=== PATIENT | male | born 2000 | race Caucasian/White ===

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

== ENCOUNTER 2024-09-26 20:24 | Inpatient (IN) ==
--- NOTE | 2024-09-26 20:50 | Emergency Department Note ---
Impression & Plan Fall down stairs, Rhabdomyolysis, Transaminitis, Pain in right leg ED Provider Note HISTORY OF PRESENT ILLNESS: Patient is a 23-year-old male presenting with right leg pain after fall downstairs. Patient reports that he was walking down stairs backwards when he suddenly lost his footing and fell, falling down 10 stairs and landing on his right side. Reports that he landed mainly on his right side and is complaining of right mid thigh pain. He reports his right shoulder slightly hurts, but states his pain is mainly in his right thigh. He reports he was able to get up after the fall and bear weight for about an hour, but then the pain became too excruciating, prompting him to present to the ER. He denies striking his head or loss of consciousness. He is not on any anticoagulation or antiplatelet therapies. He denies any chest pain, shortness of breath or lightheadedness prior to his fall. He reports he just lost his footing. Denies any alcohol or drug use. ROS: as above PHYSICAL EXAM: Vitals: See nursing chart. Constitutional: GCS 15. HENT: Head: No external signs of trauma. Mouth/Throat: Midface stable. No malocclusion. Eyes: EOMI. Pupils are 3 mm, round and reactive bilaterally. Nose: No nasal septal hematoma. No gross deformity. Neck: C-collar in place. No midline C-spine tenderness. No step-offs. Cardiovascular: RRR. Pulses present in all 4 extremities. No chest wall tenderness to palpation. Pulmonary/Chest: BS equal bilaterally. No tenderness or ecchymosis. Abdomen: No tenderness or ecchymosis. Musculoskeletal: Pelvis: No instability. Extremities: No gross deformity. Patient has tenderness palpation to the mid thigh on the right leg. He is able to dorsiflex and plantarflex the ankle and wiggle toes. Sensation intact to light touch about the nerve distributions. No open wounds. Skin: No laceration. No abrasion. Neuro: No focal neurological deficits. GCS as above. Psych: Normal mood and affect. MDM: - Vitals signs showed tachycardia - History obtained via patient. History as above. - Chronic conditions affecting care: None - Differential diagnoses include, but are not limited to: Intracranial hemorrhage; hypoglycemia; skull fracture; liver laceration; spleen laceration; pneumothorax - Order placed for continuous cardiac monitoring. At this time, monitor showed rate of 88 bpm with normal sinus rhythm, per my interpretation. - External medical records reviewed. - EKG image interpreted by myself showed normal sinus rhythm. Rate 81 bpm. QT 338. No acute ischemic changes. Patient is noted to have some slight ST elevations in leads II, 3, aVF and lateral leads V3 through V6. However, this likely secondary to early repolarization. - Laboratory workup interpreted by myself showed normal WBC; normal hemoglobin; normal PT/INR; stable electrolytes; hyperglycemia (glucose 63); transaminitis (AST 164; ALT 54); elevated CK (Cr 15,528); normal lipase; normal troponin; negative alcohol - CXR image reviewed by myself is negative for pneumonia or pneumothorax, per my interpretation. - Xray pelvis negative for fracture - Xray right femur negative for fracture - CT head wo contrast negative for acute intracranial pathology - CT cervical spine wo contrast negative for acute pathology - CT chest with IV contrast negative for acute traumatic injury. - CT abdomen/pelvis with IV contrast negative for acute traumatic injury. Noted to have a large amount of stool in the colon. - Patient given 1g IV tylenol for pain control. On reassessment, he still complaining of significant pain and spasming in the right quad. No appreciable ecchymosis or open wounds at this time. The compartment is soft. Patient has intact distal pulses. He is able to dorsiflex and plantarflex the ankle and initiate flexion at the knee. He was given 50 mg IV Toradol and 2L normal saline. - The patient's cervical collar was removed today. The patient's imaging was reviewed and the CT C-Spine was negative for acute injury. The patient was alert and oriented prior to his exam. On exam, he was non-tender to palpation midline and had full ROM without any neurologic deficits. The patient tolerated this procedure well. - Discussed results with the patient. I did ask if he has been taking pre- workout and he denies this. He denies being on the ground for very long and states that he had fallen down the stairs and then got up and was ambulating, but when his adrenaline wore off he could not bear weight on the right leg. He does states that he just started going to the gym this week. - Discussion was had with keycase assembler about patient's case and need for admission - Hospitalist consulted for admission - Patient admitted to [facility] for further evaluation and management. ASSESSMENT AND PLAN: Diagnosis: Fall downstairs; rhabdomyolysis; transaminitis; pain in right leg Plan: Admit Past Med/Surg History Problem List (Updated 09/26/24 @ 23:27 by Veronica Burton MD) Pain in right leg (Acute) Transaminitis (Acute) Rhabdomyolysis (Acute) Fall down stairs (Acute) COVID-19 (Acute) Injury of left leg (Acute) History of laparoscopic appendectomy (08/29/21) Laparoscopic Appendectomy - Rambo Hebert DO, FACS 08/29/2021 Acute appendicitis (Acute) No significant past surgical history No chronic diseases present Social History Smoking Status: Current every day smoker Tobacco Type: E-cigarettes / Vaping Second Hand Exposure: No; Do You Dip or Chew Tobacco: No; Hx Alcohol Use: No Hx Substance Use: No Preferred Language: Singaporean Communication Ability: Effective Visual Impairment: No Limitations Vibrating Screen Operator Required: No Beliefs That Will Affect Care: None Current Living Situation Comment: [place] Feels Safe at Home: Yes Assistive Devices: None Allergies Allergies Allergy/AdvReac Type Severity Reaction Status Date / Time No Known Allergies Allergy Verified 05/22/23 23:30 Results & Data (ED) Vital Signs Vital Signs - 24 hr 09/26/24 20:29 09/26/24 20:39 09/26/24 20:39 Temperature 36.6 C 36.5 C 36.5 C Temperature Source Temporal Artery Scan Oral Pulse Rate 93 H 90 Pulse Rate [Apical] 90 Pulse Strength [Bilateral] Normal Respiratory Rate 16 20 20 Respiratory Effort / Characteristics Non-Labored Spontaneous Respiratory Depth Normal Respiratory Pattern Regular Blood Pressure 130/75 133/81 Blood Pressure [Right Arm] 133/81 Blood Pressure Mean 93 Blood Pressure Mean [Right Arm] 98 Blood Pressure Position [Right Arm] Lying Pulse Oximetry 99 99 99 Oxygen Delivery Method Nasal Cannula Room Air Room Air Oxygen Flow Rate 0 Sepsis Recent Fever Within 48 Hours No Sepsis New/Unexplained Change in Mental Status No Sepsis Action Taken by Nursing No Action Required 09/26/24 20:39 09/26/24 21:15 09/26/24 21:19 Temperature Temperature Source Pulse Rate 96 H 87 Pulse Rate [Apical] Pulse Strength [Bilateral] Respiratory Rate 20 Respiratory Effort / Characteristics Respiratory Depth Respiratory Pattern Blood Pressure Blood Pressure [Right Arm] Blood Pressure Mean Blood Pressure Mean [Right Arm] Blood Pressure Position [Right Arm] Pulse Oximetry 99 99 Oxygen Delivery Method Room Air Room Air Oxygen Flow Rate Sepsis Recent Fever Within 48 Hours Sepsis New/Unexplained Change in Mental Status Sepsis Action Taken by Nursing 09/26/24 21:19 09/26/24 21:50 09/26/24 22:00 Temperature Temperature Source Pulse Rate Pulse Rate [Apical] 95 H 88 Pulse Strength [Bilateral] Respiratory Rate 20 20 20 Respiratory Effort / Characteristics Non-Labored Spontaneous Non-Labored Spontaneous Non-Labored Spontaneous Respiratory Depth Normal Normal Normal Respiratory Pattern Regular Regular Regular Blood Pressure Blood Pressure [Right Arm] 120/76 133/70 126/88 Blood Pressure Mean Blood Pressure Mean [Right Arm] 90 91 100 Blood Pressure Position [Right Arm] Lying Lying Lying Pulse Oximetry 98 98 98 Oxygen Delivery Method Room Air Room Air Room Air Oxygen Flow Rate Sepsis Recent Fever Within 48 Hours Sepsis New/Unexplained Change in Mental Status Sepsis Action Taken by Nursing 09/26/24 22:57 Temperature Temperature Source Pulse Rate Pulse Rate [Apical] 93 H Pulse Strength [Bilateral] Respiratory Rate 19 Respiratory Effort / Characteristics Non-Labored Spontaneous Respiratory Depth Respiratory Pattern Blood Pressure Blood Pressure [Right Arm] 117/95 Blood Pressure Mean Blood Pressure Mean [Right Arm] 102 Blood Pressure Position [Right Arm] Pulse Oximetry 99 Oxygen Delivery Method Room Air Oxygen Flow Rate Sepsis Recent Fever Within 48 Hours Sepsis New/Unexplained Change in Mental Status Sepsis Action Taken by Nursing Laboratory Data 09/26/24 20:42 09/26/24 20:42 Lab Results 09/26/24 09/26/24 09/26/24 Range/Units 20:42 20:47 21:24 WBC 6.19 (4.8-10.8) K/ul RBC 5.46 (4.70-6.10) M/uL Hgb 16.1 (14.0-18.0) g/dl POC Hgb 16.7 (14.0-18.0) g/dl Hct 46.9 (42.0-52.0) % POC Hct 49 (42-52) % MCV 85.9 (80.0-100.0) fL MCH 29.5 (25.0-34.0) pg MCHC 34.3 (32.0-36.0) g/dL RDW Std Deviation 41.4 (36.4-46.3) fL RDW Coeff of Luci 13.4 (11.5-14.5) % Plt Count 320 (130-400) K/uL MPV 9.2 L (9.4-12.4) fL Immature Gran % (Auto) 0.2 % Neut % (Auto) 65.9 % Lymph % (Auto) 22.1 % Kidder % (Auto) 7.6 % Eos % (Auto) 3.4 % Baso % (Auto) 0.8 % Neut # (Auto) 4.08 (1.40-6.50) K/uL Lymph # (Auto) 1.37 (1.20-3.40) K/uL Kidder # (Auto) 0.47 (0.11-0.59) K/uL Eos # (Auto) 0.21 (0.00-0.50) K/uL Baso # (Auto) 0.05 (0.00-0.20) K/uL Immature Gran # (Auto) 0.01 (0.01-0.20) K/uL PT 10.6 (9.0-12.0) Seconds INR 1.0 (0.9-1.1) APTT 26 (21-31) Seconds PTT Ratio 1.0 POC Sodium 141 (135-144) mmol/L Sodium 139 (136-145) mmol/L POC Potassium 3.6 (3.3-5.0) mmol/L Potassium 3.5 (3.5-5.1) mmol/L POC Chloride 104 (101-112) mmol/L Chloride 105 (98-107) mmol/L Carbon Dioxide 29 (21-32) mmol/L POC Total CO2 25 (24-31) mmol/L Anion Gap 5 (3-11) POC Anion Gap 16.0 (16-25) mmol/L POC BUN 9 (7-18) mg/dl BUN 11 (6-23) mg/dl Creatinine 0.99 (0.6-1.4) mg/dl POC Creatinine 1.0 (0.6-1.3) mg/dl Est Cr Clr Drug Dosing 98.0 ml/min eGFR 111.15 BUN/Creatinine Ratio 11.1 (10-20) Glucose 63 L (70-99(Fasting)) mg/dl POC Glucose (70-99) mg/dl POC Glucose (other) 63 L* (70-99) mg/dl Calcium 10.2 (8.6-10.3) mg/dl POC Ioniz Calcium Domingo 1.20 (1.12-1.32) mmol/l Total Bilirubin 0.9 (0.2-1.0) mg/dl AST 164 H (13-39) U/L ALT 54 H (7-52) U/L Alkaline Phosphatase 60 (34-104) U/L Total Creatine Kinase 22776 H (30-223) U/L Troponin I High Sens 8.0 (0-20) pg/ml Total Protein 8.4 H (6.0-8.3) gm/dl Albumin 5.1 H (3.4-5.0) gm/dl Globulin 3.3 (2.5-4.0) gm/dl Albumin/Globulin Ratio 1.5 (0.9-2) Lipase 27 (11-82) U/L Ethyl Alcohol mg/dL < 10.0 (<10.0) mg/dl 09/26/24 Range/Units 22:56 WBC (4.8-10.8) K/ul RBC (4.70-6.10) M/uL Hgb (14.0-18.0) g/dl POC Hgb (14.0-18.0) g/dl Hct (42.0-52.0) % POC Hct (42-52) % MCV (80.0-100.0) fL MCH (25.0-34.0) pg MCHC (32.0-36.0) g/dL RDW Std Deviation (36.4-46.3) fL RDW Coeff of Luci (11.5-14.5) % Plt Count (130-400) K/uL MPV (9.4-12.4) fL Immature Gran % (Auto) % Neut % (Auto) % Lymph % (Auto) % Kidder % (Auto) % Eos % (Auto) % Baso % (Auto) % Neut # (Auto) (1.40-6.50) K/uL Lymph # (Auto) (1.20-3.40) K/uL Kidder # (Auto) (0.11-0.59) K/uL Eos # (Auto) (0.00-0.50) K/uL Baso # (Auto) (0.00-0.20) K/uL Immature Gran # (Auto) (0.01-0.20) K/uL PT (9.0-12.0) Seconds INR (0.9-1.1) APTT (21-31) Seconds PTT Ratio POC Sodium (135-144) mmol/L Sodium (136-145) mmol/L POC Potassium (3.3-5.0) mmol/L Potassium (3.5-5.1) mmol/L POC Chloride (101-112) mmol/L Chloride (98-107) mmol/L Carbon Dioxide (21-32) mmol/L POC Total CO2 (24-31) mmol/L Anion Gap (3-11) POC Anion Gap (16-25) mmol/L POC BUN (7-18) mg/dl BUN (6-23) mg/dl Creatinine (0.6-1.4) mg/dl POC Creatinine (0.6-1.3) mg/dl Est Cr Clr Drug Dosing ml/min eGFR BUN/Creatinine Ratio (10-20) Glucose (70-99(Fasting)) mg/dl POC Glucose 102 H (70-99) mg/dl POC Glucose (other) (70-99) mg/dl Calcium (8.6-10.3) mg/dl POC Ioniz Calcium Domingo (1.12-1.32) mmol/l Total Bilirubin (0.2-1.0) mg/dl AST (13-39) U/L ALT (7-52) U/L Alkaline Phosphatase (34-104) U/L Total Creatine Kinase (30-223) U/L Troponin I High Sens (0-20) pg/ml Total Protein (6.0-8.3) gm/dl Albumin (3.4-5.0) gm/dl Globulin (2.5-4.0) gm/dl Albumin/Globulin Ratio (0.9-2) Lipase (11-82) U/L Ethyl Alcohol mg/dL (<10.0) mg/dl Administered Medications Discontinued Medications Acetaminophen (Ofirmev) 1,000 mg in 100 mls @ 400 mls/hr IV NOW STA Stop: 09/26/24 21:04 Last Infusion: 09/26/24 22:26 Dose: Infused Documented By: Admin: 09/26/24 21:12 Dose: 400 mls/hr Documented By: Sodium Chloride (Nss) 1,000 mls @ 999 mls/hr IV .Q1H1M ONE Stop: 09/26/24 23:45 Last Admin: 09/26/24 22:54 Dose: 999 mls/hr Documented By: Ioversol (Optiray 320 100ml) 90 ml IV ONCE ONE Stop: 09/26/24 20:57 Last Admin: 09/26/24 20:57 Dose: 90 ml Documented By: RONNI Ketorolac Tromethamine (Ketorolac Tromethamine 15 Mg/Ml Vial) 15 mg IV NOW STA Stop: 09/26/24 22:46 Last Admin: 09/26/24 22:53 Dose: 15 mg Documented By: Imaging Data Radiologist's Impression: Chest X-Ray 09/26/24 20:45 Exam(s): XR CXR 1 VIEW EXAM: XR Chest, 1 View CLINICAL HISTORY: Reason for exam: Trauma. TECHNIQUE: Frontal view of the chest. COMPARISON: None FINDINGS: Hardware: None. Lungs/pleura: Normal. No focal consolidation. No pleural effusion or pneumothorax. Heart/mediastinum: Normal. No cardiomegaly. Soft tissues: Unremarkable. Bones: No acute fracture. Upper abdomen: Normal. IMPRESSION: No acute disease identified. Electronically signed by: Sandy Medina M.D. 09/26/24 22:40 PM Femur X-Ray 09/26/24 20:45 Exam(s): XR RIGHT FEMUR, 2 views EXAM: XR Right Femur, 2 Views CLINICAL HISTORY: Reason for exam: R mid-thigh pain s/p fall down stairs. TECHNIQUE: Frontal and lateral views of the right femur. COMPARISON: None FINDINGS: Bones/joints: No displaced fracture or dislocation identified. Joint space is maintained. No bony lesion. Soft tissues: Normal. No radiopaque foreign body identified. IMPRESSION: No displaced fracture or dislocation identified. Electronically signed by: Sandy Medina M.D. 09/26/24 22:41 PM Pelvis X-Ray 09/26/24 20:45 Exam(s): XR PELVIS, 1-2 views EXAM: XR Pelvis, 1 or 2 Views CLINICAL HISTORY: Reason for exam: Trauma. TECHNIQUE: Frontal view of the pelvis. COMPARISON: None FINDINGS: Bones/joints: No displaced fracture or dislocation identified. Joint space is maintained. No bony lesion. Soft tissues: Normal. No radiopaque foreign body identified. IMPRESSION: No displaced fracture or dislocation identified. Electronically signed by: Sandy Medina M.D. 09/26/24 22:40 PM Abdomen/Pelvis CT 09/26/24 20:46 Exam(s): CT ABDOMEN + PELVIS With Contrast IV Amt: 90 ml optiray 320 EXAM: CT Abdomen and Pelvis With Intravenous Contrast CLINICAL HISTORY: Reason for exam: Trauma. TECHNIQUE: Axial computed tomography images of the abdomen and pelvis with intravenous contrast. CTDI is 14.81 mGy and DLP is 685.66 mGy-cm. Automated exposure control was utilized for the study. A dose lowering technique was utilized adhering to the principles of ALARA. CONTRAST: Patient received 90 ml optiray 320 of IV contrast COMPARISON: CT abdomen/pelvis on 10/15/2021. FINDINGS: Lung bases: Unremarkable. No mass. No consolidation. ABDOMEN: Liver: Unremarkable. No mass. Gallbladder and bile ducts: Unremarkable. No calcified stones. No ductal dilation. Pancreas: Unremarkable. No mass. No ductal dilation. Spleen: Unremarkable. No splenomegaly. Adrenals: Unremarkable. No mass. Kidneys and ureters: Unremarkable. No hydronephrosis or obstructing ureteral stone. Stomach and bowel: Large amount of stool in the colon. No small bowel obstruction. No mucosal thickening. PELVIS: Appendix: Appendectomy. Bladder: Unremarkable. No mass. Reproductive: Unremarkable as visualized. ABDOMEN and PELVIS: Intraperitoneal space: Unremarkable. No free air. No significant fluid collection. Bones/joints: No acute fracture. No dislocation. Soft tissues: Unremarkable. Vasculature: Unremarkable. No abdominal aortic aneurysm. Lymph nodes: Unremarkable. No enlarged lymph nodes. IMPRESSION: Large amount of stool in the colon. No small bowel obstruction. No acute traumatic abnormality identified. Electronically signed by: Sandy Medina M.D. 09/26/24 21:[address] 09/26/24 20:46 Exam(s): CT C SPINE EXAM: CT Cervical Spine Without Intravenous Contrast CLINICAL HISTORY: Reason for exam: Trauma. TECHNIQUE: Axial computed tomography images of the cervical spine without intravenous contrast. CTDI is 20.92 mGy and DLP is 457.85 mGy-cm. Automated exposure control was utilized for the study. A dose lowering technique was utilized adhering to the principles of ALARA. COMPARISON: None FINDINGS: Bones: Normal alignment. No acute fracture or bony lesion. Disc spaces: No subluxation. No spinal canal stenosis or neuroforaminal stenosis. Soft tissues: Normal. Other: Mild mucosal thickening and polyp versus mucous retention cyst in the right maxillary sinus. Moderate to severe mucosal thickening and small amount of fluid within the left maxillary sinus. Mild scarring at the lung apices. IMPRESSION: No acute traumatic abnormality. Electronically signed by: Sandy Medina M.D. 09/26/24 22:[address] 09/26/24 20:46 Exam(s): CT CHEST With Contrast EXAM: CT Chest With Intravenous Contrast CLINICAL HISTORY: Reason for exam: Trauma. TECHNIQUE: Axial computed tomography images of the chest with intravenous contrast. CTDI is 15.21 mGy and DLP is 529.31 mGy-cm. Automated exposure control was utilized for the study. A dose lowering technique was utilized adhering to the principles of ALARA. CONTRAST: Contrast must be dictated COMPARISON: CT chest on 01/26/2024 FINDINGS: Lungs: Unremarkable. No mass. No consolidation. Pleural space: Unremarkable. No pneumothorax. No significant effusion. Heart: Unremarkable. No cardiomegaly. No significant pericardial effusion. No significant coronary artery calcifications. Bones/joints: Old fracture deformity of the distal left clavicle. No dislocation. Soft tissues: Unremarkable. Vasculature: Unremarkable. No thoracic aortic aneurysm. Lymph nodes: Unremarkable. No enlarged lymph nodes. IMPRESSION: No acute findings in the chest. Electronically signed by: Sandy Medina M.D. 09/26/24 21:[address] 09/26/24 20:46 Exam(s): CT HEAD Without Contrast EXAM: CT Head Without Intravenous Contrast CLINICAL HISTORY: Reason for exam: trauma. TECHNIQUE: Axial computed tomography images of the head/brain without intravenous contrast. CTDI is 37.22 mGy and DLP is 624.41 mGy-cm. Automated exposure control was utilized for the study. A dose lowering technique was utilized adhering to the principles of ALARA. COMPARISON: None FINDINGS: Brain: No acute infarct or hemorrhage. No extra-axial fluid collection. No mass effect or midline shift. Ventricles and sulci: Normal. No ventriculomegaly or intraventricular hemorrhage. Bones: Normal. No bony lesion or acute fracture. Subcutaneous tissues: Normal. Sinuses: Mucosal thickening or fluid partially seen in the left maxillary sinus. Mastoid air cells: Normal. Orbits: Grossly unremarkable. IMPRESSION: No acute intracranial abnormality. Electronically signed by: Sandy Medina M.D. 09/26/24 21:33 PM Discharge Plan Visit Data Chief Complaint: Trauma Stated Complaint: RIGHT THIGH INJURY ED Provider: Veronica Burton Discharge Problem: Fall down stairs, Rhabdomyolysis, Transaminitis, Pain in right leg Forms Stand Alone Forms: [facility] Referrals [facility]errals: [facility] [Primary Care Provider] -
[2024-09-26] MEDS: OPTIRAY 320 100ml IV ONE (20:57)
[2024-09-26 20:59] LABS: iSTAT Hemoglobin 16.7 g/dl (14.0-18.0); iSTAT Ionized Calcium 1.2 mmol/l (1.12-1.32); iSTAT Potassium 3.6 mmol/L (3.3-5.0)
[2024-09-26] MEDS: ACETAMINOPHEN 1,000 MG/100 ML VIAL IV STA (21:12)
--- NOTE | 2024-09-26 21:33 | CT Scan Report ---
Exam(s): CT HEAD Without Contrast EXAM: CT Head Without Intravenous Contrast CLINICAL HISTORY: Reason for exam: trauma. TECHNIQUE: Axial computed tomography images of the head/brain without intravenous contrast. CTDI is 37.22 mGy and DLP is 624.41 mGy-cm. Automated exposure control was utilized for the study. A dose lowering technique was utilized adhering to the principles of ALARA. COMPARISON: None FINDINGS: Brain: No acute infarct or hemorrhage. No extra-axial fluid collection. No mass effect or midline shift. Ventricles and sulci: Normal. No ventriculomegaly or intraventricular hemorrhage. Bones: Normal. No bony lesion or acute fracture. Subcutaneous tissues: Normal. Sinuses: Mucosal thickening or fluid partially seen in the left maxillary sinus. Mastoid air cells: Normal. Orbits: Grossly unremarkable. IMPRESSION: No acute intracranial abnormality. Electronically signed by: Sandy Medina M.D. 09/26/24 21:33 PM
--- NOTE | 2024-09-26 21:41 | CT Scan Report ---
Exam(s): CT CHEST With Contrast EXAM: CT Chest With Intravenous Contrast CLINICAL HISTORY: Reason for exam: Trauma. TECHNIQUE: Axial computed tomography images of the chest with intravenous contrast. CTDI is 15.21 mGy and DLP is 529.31 mGy-cm. Automated exposure control was utilized for the study. A dose lowering technique was utilized adhering to the principles of ALARA. CONTRAST: Contrast must be dictated COMPARISON: CT chest on 01/26/2024 FINDINGS: Lungs: Unremarkable. No mass. No consolidation. Pleural space: Unremarkable. No pneumothorax. No significant effusion. Heart: Unremarkable. No cardiomegaly. No significant pericardial effusion. No significant coronary artery calcifications. Bones/joints: Old fracture deformity of the distal left clavicle. No dislocation. Soft tissues: Unremarkable. Vasculature: Unremarkable. No thoracic aortic aneurysm. Lymph nodes: Unremarkable. No enlarged lymph nodes. IMPRESSION: No acute findings in the chest. Electronically signed by: Sandy Medina M.D. 09/26/24 21:40 PM
[2024-09-26 21:42] LABS: Basophils # (auto) 0.05 K/uL (0.00-0.20); Basophils % (auto) 0.8 %; Eosinophils # (auto) 0.21 K/uL (0.00-0.50); Eosinophils % (auto) 3.4 %; Hematocrit (blood only) 46.9 % (42.0-52.0); Hemoglobin 16.1 g/dl (14.0-18.0); Immature Granulocytes # (auto) 0.01 K/uL (0.01-0.20); Immature Granulocytes % (auto) 0.2 %; Lymphocytes # (auto) 1.37 K/uL (1.20-3.40); Lymphocytes % (auto) 22.1 %; Mean Corpuscular Hemoglobin 29.5 pg (25.0-34.0); Mean Corpuscular Hgb Conc 34.3 g/dL (32.0-36.0); Mean Corpuscular Volume 85.9 fL (80.0-100.0); Mean Platelet Volume 9.2 fL (9.4-12.4); Monocytes # (auto) 0.47 K/uL (0.11-0.59); Monocytes % (auto) 7.6 %; Neutrophils # (auto) 4.08 K/uL (1.40-6.50); Neutrophils % (auto) 65.9 %; Platelet Count 320 K/uL (130-400); RDW Coefficient of Variation 13.4 % (11.5-14.5); RDW Standard Deviation 41.4 fL (36.4-46.3); Red Blood Count 5.46 M/uL (4.70-6.10); White Blood Count 6.19 K/ul (4.8-10.8)
[2024-09-26 21:50] LABS: BUN Creatinine Ratio 11.1 (10-20); Calcium 10.2 mg/dl (8.6-10.3); Potassium 3.5 mmol/L (3.5-5.1)
--- NOTE | 2024-09-26 21:54 | CT Scan Report ---
Exam(s): CT ABDOMEN + PELVIS With Contrast IV Amt: 90 ml optiray 320 EXAM: CT Abdomen and Pelvis With Intravenous Contrast CLINICAL HISTORY: Reason for exam: Trauma. TECHNIQUE: Axial computed tomography images of the abdomen and pelvis with intravenous contrast. CTDI is 14.81 mGy and DLP is 685.66 mGy-cm. Automated exposure control was utilized for the study. A dose lowering technique was utilized adhering to the principles of ALARA. CONTRAST: Patient received 90 ml optiray 320 of IV contrast COMPARISON: CT abdomen/pelvis on 10/15/2021. FINDINGS: Lung bases: Unremarkable. No mass. No consolidation. ABDOMEN: Liver: Unremarkable. No mass. Gallbladder and bile ducts: Unremarkable. No calcified stones. No ductal dilation. Pancreas: Unremarkable. No mass. No ductal dilation. Spleen: Unremarkable. No splenomegaly. Adrenals: Unremarkable. No mass. Kidneys and ureters: Unremarkable. No hydronephrosis or obstructing ureteral stone. Stomach and bowel: Large amount of stool in the colon. No small bowel obstruction. No mucosal thickening. PELVIS: Appendix: Appendectomy. Bladder: Unremarkable. No mass. Reproductive: Unremarkable as visualized. ABDOMEN and PELVIS: Intraperitoneal space: Unremarkable. No free air. No significant fluid collection. Bones/joints: No acute fracture. No dislocation. Soft tissues: Unremarkable. Vasculature: Unremarkable. No abdominal aortic aneurysm. Lymph nodes: Unremarkable. No enlarged lymph nodes. IMPRESSION: Large amount of stool in the colon. No small bowel obstruction. No acute traumatic abnormality identified. Electronically signed by: Sandy Medina M.D. 09/26/24 21:54 PM
[2024-09-26 22:03] LABS: Partial Thromboplastin Time 26 Seconds (21-31); Prothrombin Time 10.6 Seconds (9.0-12.0)
[2024-09-26 22:09] LABS: Albumin Globulin Ratio 1.5 (0.9-2); Albumin Level 5.1 gm/dl (3.4-5.0); Bilirubin,Total 0.9 mg/dl (0.2-1.0); Globulin 3.3 gm/dl (2.5-4.0); Total Protein 8.4 gm/dl (6.0-8.3)
--- NOTE | 2024-09-26 22:12 | CT Scan Report ---
Exam(s): CT C SPINE EXAM: CT Cervical Spine Without Intravenous Contrast CLINICAL HISTORY: Reason for exam: Trauma. TECHNIQUE: Axial computed tomography images of the cervical spine without intravenous contrast. CTDI is 20.92 mGy and DLP is 457.85 mGy-cm. Automated exposure control was utilized for the study. A dose lowering technique was utilized adhering to the principles of ALARA. COMPARISON: None FINDINGS: Bones: Normal alignment. No acute fracture or bony lesion. Disc spaces: No subluxation. No spinal canal stenosis or neuroforaminal stenosis. Soft tissues: Normal. Other: Mild mucosal thickening and polyp versus mucous retention cyst in the right maxillary sinus. Moderate to severe mucosal thickening and small amount of fluid within the left maxillary sinus. Mild scarring at the lung apices. IMPRESSION: No acute traumatic abnormality. Electronically signed by: Sandy Medina M.D. 09/26/24 22:10 PM
--- NOTE | 2024-09-26 22:41 | XRay Report ---
Exam(s): XR CXR 1 VIEW EXAM: XR Chest, 1 View CLINICAL HISTORY: Reason for exam: Trauma. TECHNIQUE: Frontal view of the chest. COMPARISON: None FINDINGS: Hardware: None. Lungs/pleura: Normal. No focal consolidation. No pleural effusion or pneumothorax. Heart/mediastinum: Normal. No cardiomegaly. Soft tissues: Unremarkable. Bones: No acute fracture. Upper abdomen: Normal. IMPRESSION: No acute disease identified. Electronically signed by: Sandy Medina M.D. 09/26/24 22:40 PM
--- NOTE | 2024-09-26 22:41 | XRay Report ---
Exam(s): XR PELVIS, 1-2 views EXAM: XR Pelvis, 1 or 2 Views CLINICAL HISTORY: Reason for exam: Trauma. TECHNIQUE: Frontal view of the pelvis. COMPARISON: None FINDINGS: Bones/joints: No displaced fracture or dislocation identified. Joint space is maintained. No bony lesion. Soft tissues: Normal. No radiopaque foreign body identified. IMPRESSION: No displaced fracture or dislocation identified. Electronically signed by: Sandy Medina M.D. 09/26/24 22:40 PM
--- NOTE | 2024-09-26 22:42 | XRay Report ---
Exam(s): XR RIGHT FEMUR, 2 views EXAM: XR Right Femur, 2 Views CLINICAL HISTORY: Reason for exam: R mid-thigh pain s/p fall down stairs. TECHNIQUE: Frontal and lateral views of the right femur. COMPARISON: None FINDINGS: Bones/joints: No displaced fracture or dislocation identified. Joint space is maintained. No bony lesion. Soft tissues: Normal. No radiopaque foreign body identified. IMPRESSION: No displaced fracture or dislocation identified. Electronically signed by: Sandy Medina M.D. 09/26/24 22:41 PM
[2024-09-26] MEDS: KETOROLAC TROMETHAMINE 15 MG/ML VIAL IV STA (22:53)
[2024-09-26] MEDS: SODIUM CHLORIDE 0.9% 1,000 ML IV ONE (22:54)
[2024-09-27] MEDS: SODIUM CHLORIDE 0.9% 1,000 ML IV ONE (00:14)
--- NOTE | 2024-09-27 00:25 | History & Physical Report ---
Date of Service September 27, 2024 Assessment & Plan (1) Rhabdomyolysis: (2) Transaminitis: Plan Pt is a 23 yo male with no significant past medical history who presents to the hospital on 09/27 for fall down 10 stairs without injury on imaging but rhabdomyolysis noted. #Rhabdomyolysis - post fall and just started to go to the gym this week during Ramadan - CT/xrays scans on admission negative for fractures - CK level on admission 15,000 - given 1L NS bolus x2 in the ED - continue on NS @ 200/hr for 2 bags to start - am CK level ordered #Transaminitis - on admission, mild - am CMP #Hypoglycemia - pt is currently fasting for - he was asymptomatic with episode - corrected with po intake VTE prophylaxis: low risk History of Present Illness Chief Complaint: Fall Primary Care Provider: [facility] Pt is a 23 yo male with no significant past medical history who presents to the hospital on 09/27 for fall down 10 stairs without injury on imaging but rhabdomyolysis noted. Pt states he was walking down a flight of stairs backwards and then slipped and fell down the remaining 10 stairs, landing on his R side and coming in today with R leg/thigh pain. No symptoms of chest pain, SOB, or lightheadedness prior to the fall. He did not hit his head, no LOC. He is participating in adan and states that he just started working out for the first time this week on Sunday with his last gym session being yesterday. He states he has been taking protein powder "Mass Gain" also starting this week. Right now, he states he has no pain. His R leg pain is much improved. No chest pain or SOB right now. Allergies Allergy/AdvReac Type Severity Reaction Status Date / Time No Known Allergies Allergy Verified 05/22/23 23:30 Home Medications Medication Instructions Recorded Confirmed Type No Known Home Medications 09/27/24 09/27/24 History Past Med/Surg History Problem List (Updated 09/26/24 @ 23:27 by Veronica Burton MD) Pain in right leg (Acute) Transaminitis (Acute) Rhabdomyolysis (Acute) Fall down stairs (Acute) COVID-19 (Acute) Injury of left leg (Acute) History of laparoscopic appendectomy (08/29/21) Laparoscopic Appendectomy - Rambo Hebert DO, FACS 08/29/2021 Acute appendicitis (Acute) No significant past surgical history No chronic diseases present Social History Smoking Status: Current every day smoker Tobacco Type: Cigarettes Second Hand Exposure: No; Do You Dip or Chew Tobacco: No; Hx Alcohol Use: No Hx Substance Use: No Preferred Language: Yi Communication Ability: Effective Visual Impairment: No Limitations Manufacturing Lab Technician Required: No Beliefs That Will Affect Care: None Current Living Situation: Other Current Living Situation Comment: [facility] Other Information That Helps Us Care for You: No Feels Safe at Home: Yes Safety Concerns: Feels Safe At This Time Assistive Devices: None Review of Systems Review of Systems: Per HPI. Physical Exam Physical Exam: General: Alert and oriented, no acute distress, HEENT: Normocephalic, moist oral mucosa, Cardio: Regular rate and rhythm, no murmur, Resp: Lungs clear to auscultation b/l, no wheezes or rhonchi, GI: Soft and nontender Skin: Warm, pink, dry, Extremities: Normal range of motion, 5/5 strength, dorsalis pedis and posterior tibialis pulses good bilaterally Results & Data Results & Data Vital Signs (Past 12 Hours) Vital Signs Temp Pulse Pulse Resp BP BP Pulse Ox 09/26/24 22:57 93 H 19 117/95 99 09/26/24 22:00 88 20 126/88 98 09/26/24 21:50 20 133/70 98 09/26/24 21:19 95 H 20 120/76 98 09/26/24 21:19 87 20 99 09/26/24 21:15 99 09/26/24 20:39 96 H 09/26/24 20:39 36.5 C 90 20 133/81 99 09/26/24 20:39 36.5 C 90 20 133/81 99 09/26/24 20:29 36.6 C 93 H 16 130/75 99 O2 Del Method O2 Flow Rate 09/26/24 22:57 Room Air 09/26/24 22:00 Room Air 09/26/24 21:50 Room Air 09/26/24 21:19 Room Air 09/26/24 21:19 Room Air 09/26/24 21:15 Room Air 09/26/24 20:39 09/26/24 20:39 Room Air 09/26/24 20:39 Room Air 0 09/26/24 20:29 Nasal Cannula Supervising Physician Co-Signing Physician Notes Attending addendum: I have physically seen this patient, have supervised the medical residents activities, and agree with the H&P unless as otherwise noted. Assessment and Plan: The patient is a 53-year-old male with no significant past medical history who presents to the emergency department after a fall downstairs, as he was walking up stairs. Patient status post mechanical fall, as he was walking up steps, unsure if he stepped up, but fell backwards. Imaging studies including CT scan of the head, chest, cervical spine, abdomen pelvis revealed no acute findings. #Acute rhabdomyolysis- AST 164, ALT 54, total CK 15,528, creatinine 0.99 Repeat laboratories in a.m. after aggressive rehydration. Patient's status post 2 L normal saline bolus in the ED Continue with NSS at 200 mL/h x 2 additional liters Patient did receive Toradol 15 mg IV in ED, will hold on additional NSAIDs or nephrotoxins Acetaminophen 1 g IV every 8 hours as needed for fever Patient of note on discussion, had also been on a significant exercise program over the past week, and was advised to avoid this type of activity again, until given the okay by physicians Resident Activity Tracking Resident Involvement: Resident Care Provided Care Provided: Adult [facility]
[2024-09-27 01:18] LABS: Appearance Urine Clear (Clear); Bilirubin Urine Negative (Negative); Blood Urine Negative (Negative); Color Urine Yellow; Glucose Urine UA Negative (Negative); Ketones Urine Negative (Negative); Leukocyte Esterase Urine Negative (Negative); Nitrite Urine Negative (Negative); Protein Urine Negative (Negative); Specific Gravity Urine 1.019 (1.000-1.030); Urobilinogen Urine Negative (Negative); pH Urine 7.5 (4.5-7.5)
[2024-09-27] MEDS ORDERED: ONDANSETRON INJ 2 MG/ML 2 ML VIAL IV PRN (01:28)
[2024-09-27] MEDS ORDERED: ACETAMINOPHEN 325 MG TAB PO PRN (01:28)
[2024-09-27] MEDS ORDERED: POLYETHYLENE (MIRALAX) 17 GM PACK PO PRN (01:28)
[2024-09-27 01:51] LABS: Amphetamines+Metham, Urine Neg (Neg); Barbiturates, Urine Neg (Neg); Benzodiazepine, Urine Neg (Neg); Cocaine, Urine Neg (Neg); Fentanyl, Urine Neg (Neg); MDMA (Ecstacy), Urine Neg (Neg); Marijuana, Urine Neg (Neg); Methadone, Urine Neg (Neg); Opiate, Urine Neg (Neg); Phencyclidine, Urine Neg (Neg)
[2024-09-27] MEDS: SODIUM CHLORIDE 0.9% 1,000 ML IV SCH (02:15)
[2024-09-27 05:16] LABS: Albumin Globulin Ratio 1.5 (0.9-2); Albumin Level 3.8 gm/dl (3.4-5.0); BUN Creatinine Ratio 10.5 (10-20); Bilirubin,Total 0.3 mg/dl (0.2-1.0); Calcium 8.3 mg/dl (8.6-10.3); Creatinine Clr Calc Pharmacy 127.7 ml/min; Globulin 2.6 gm/dl (2.5-4.0); Potassium 3.7 mmol/L (3.5-5.1); Total Protein 6.4 gm/dl (6.0-8.3)
--- NOTE | 2024-09-27 07:39 | Hospitalist Progress Note ---
Date of Service September 27, 2024 Assessment & Plan (1) Rhabdomyolysis: (2) Transaminitis: Plan Pt is a 23 yo male with no significant past medical history who presents to the hospital on 09/27 for fall down 10 stairs without injury on imaging but rhabdomyolysis noted. Has received 2L IVF, but continues with elevating CK noted on AM labs. #Rhabdomyolysis - post fall and just started to go to the gym this week during adan - CT/xrays scans on admission negative for fractures - [place] [address] this 09/27 - given 2 bolus IVF in ED - Continue NSS and increased rate to 250/hr for an additional 2 bags - CK level and BMP ordered for 1400 #Transaminitis - on admission, mild - Continues with elevated AST at 165, ALT is WNL - Continue to monitor with CMP #Hypoglycemia - pt is had been fasting for - BSG normal per CMP 09/27 VTE prophylaxis: low risk Code status: Full Diet: Regular Dispo PCU/tele Admission and Anticipated Discharge Date Admission Date: September 27, 2024 Subjective Pt is a 23 yo male without significant PMH who presented after a fall down stairs. Imaging was negative for fracture, but labs found significantly high CK and liver enzymes. Pt admitted to working out while fasting for . Pt was started on IVF. This morning, pt denies increased or new muscle or joint pain. He states his urine is of normal pale yellow color and without dysuria. Denies CP, SOB, abdominal pain, nausea, vomiting, diarrhea, rashes, dizziness, numbness or tingling Review of Systems Review of Systems: Per HPI. Physical Exam Physical Exam: General: Alert and oriented, no acute distress, HEENT: Normocephalic, moist oral mucosa, no lymphadenopathy Cardio: Regular rate and rhythm, no murmur, Resp: Lungs clear to auscultation b/l, no wheezes or rhonchi, GI: Soft and nontender, normoactive bowel sounds Skin: Warm, pink, dry, no rashes Extremities: Normal range of motion, 5/5 strength, No edema appreciated. Dorsalis pedis 1+ good bilaterally Results & Data Results & Data Vital Signs (Past 12 Hours) Vital Signs Temp Pulse Pulse Resp BP BP Pulse Ox 09/27/24 07:29 70 18 120/65 99 09/27/24 07:13 68 09/27/24 04:00 37 C 88 16 120/79 100 09/27/24 02:25 09/27/24 02:00 90 20 102/80 100 09/27/24 01:45 36.9 C 72 22 96 09/27/24 01:24 36.8 C 70 21 133/81 94 09/27/24 01:01 70 09/27/24 00:00 81 22 107/61 98 09/26/24 23:00 36.7 C 86 21 116/88 98 09/26/24 22:57 93 H 19 117/95 99 09/26/24 22:00 88 20 126/88 98 09/26/24 21:50 20 133/70 98 09/26/24 21:19 95 H 20 120/76 98 09/26/24 21:19 87 20 99 09/26/24 21:15 99 09/26/24 20:39 96 H 09/26/24 20:39 36.5 C 90 20 133/81 99 09/26/24 20:39 36.5 C 90 20 133/81 99 09/26/24 20:29 36.6 C 93 H 16 130/75 99 Pulse Ox O2 Del Method O2 Del Method O2 Flow Rate 09/27/24 07:29 Room Air 09/27/24 07:13 09/27/24 04:00 Room Air 09/27/24 02:25 99 Room Air 09/27/24 02:00 Room Air 09/27/24 01:45 Room Air 09/27/24 01:24 Room Air 09/27/24 01:01 09/27/24 00:00 Room Air 09/26/24 23:00 Room Air 09/26/24 22:57 Room Air 09/26/24 22:00 Room Air 09/26/24 21:50 Room Air 09/26/24 21:19 Room Air 09/26/24 21:19 Room Air 09/26/24 21:15 Room Air 09/26/24 20:39 09/26/24 20:39 Room Air 09/26/24 20:39 Room Air 0 09/26/24 20:29 Nasal Cannula Laboratory Results Abnormal lab results 09/26/24 09/26/24 09/26/24 Range/Units 20:42 20:47 22:56 MPV 9.2 L (9.4-12.4) fL Chloride (98-107) mmol/L Glucose 63 L (70-99(Fasting)) mg/dl POC Glucose 102 H (70-99) mg/dl POC Glucose (other) 63 L* (70-99) mg/dl Calcium (8.6-10.3) mg/dl AST 164 H (13-39) U/L ALT 54 H (7-52) U/L Total Creatine Kinase 34669 H (30-223) U/L Total Protein 8.4 H (6.0-8.3) gm/dl Albumin 5.1 H (3.4-5.0) gm/dl 09/27/24 Range/Units 04:31 MPV (9.4-12.4) fL Chloride 110 H (98-107) mmol/L Glucose (70-99(Fasting)) mg/dl POC Glucose (70-99) mg/dl POC Glucose (other) (70-99) mg/dl Calcium 8.3 L (8.6-10.3) mg/dl AST 165 H (13-39) U/L ALT (7-52) U/L Total Creatine Kinase 15882 H (30-223) U/L Total Protein (6.0-8.3) gm/dl Albumin (3.4-5.0) gm/dl Resident Activity Tracking Resident Involvement: Resident Care Provided Care Provided: Adult Hospital Medicine
--- NOTE | 2024-09-27 10:26 | Ultrasound Report ---
US soft tissue ext ltd CLINICAL HISTORY: RLE mid-thigh pain s/p fall COMPARISON STUDY: None FINDINGS: Region of clinical concern at the anterior right thigh was examined with ultrasound. There is mild edema in the muscle and overlying subcutaneous tissue in the region of clinical concern shaila red to the left. No significant hematoma seen. IMPRESSION: Mild edema without significant hematoma. ACT 112: Negative or not required by law. Electronically signed by: Rambo Baez M.D. 09/27/2024 10:24 AM
[2024-09-27 14:47] LABS: BUN Creatinine Ratio 9.6 (10-20); Calcium 8.5 mg/dl (8.6-10.3); Creatinine Clr Calc Pharmacy 132.9 ml/min; Potassium 4.1 mmol/L (3.5-5.1)
[2024-09-28 06:39] LABS: BUN Creatinine Ratio 12.1 (10-20); Calcium 8.6 mg/dl (8.6-10.3); Potassium 3.9 mmol/L (3.5-5.1)
[2024-09-28 06:48] LABS: Albumin Globulin Ratio 1.6 (0.9-2); Albumin Level 3.9 gm/dl (3.4-5.0); Bilirubin,Total 0.3 mg/dl (0.2-1.0); Globulin 2.5 gm/dl (2.5-4.0); Total Protein 6.4 gm/dl (6.0-8.3)
[2024-09-28 07:27] VITALS: RESP 18
--- NOTE | 2024-09-28 07:32 | Hospitalist Progress Note ---
Date of Service September 28, 2024 Assessment & Plan (1) Rhabdomyolysis: (2) Transaminitis: Plan Pt is a 23 yo male with no significant past medical history who presents to the hospital on 09/27 for fall down 10 stairs without injury on imaging but rhabdomyolysis noted. Has received 6L IVF, but continues with elevating CK noted on AM labs. #Rhabdomyolysis - post fall and just started to go to the gym this week during Ramadan (fasting) - CT/xrays scans on admission negative for fractures - CK level on admission 15,000, have been hovering around 17,800 since 09/27 - given 2 bolus IVF in ED, additional 6 L since admission - Continue NSS and increased rate to 250/hr - Kidney function is good with Cr, BUN and GFR WNL, electrolytes in balance - CK level and BMP ordered for 1400 #Intermittent tachycardia, ST changes - Noted ST elevations in V2 nad V3 and intermittent tachycardia on telemetry - Pt denies CP, SOB, dizziness, nausea - Ordered EKG and trop level at 1400 #Transaminitis - on admission, mild - Continues with elevated AST at 196, ALT bumped to 63 - Continue to monitor with CMP #Hypoglycemia - pt is had been fasting for - BSG normal since admission - Will continue to monitor VTE prophylaxis: low risk Code status: Full Diet: Regular Dispo PCU/tele Admission and Anticipated Discharge Date Admission Date: September 27, 2024 Subjective Pt is a 23 yo male without significant PMH who presented after a fall down stairs. Imaging was negative for fracture, but labs found significantly high CK and liver enzymes. Pt admitted to working out while fasting for . Pt was started on IVF. This morning, pt reports feeling swollen in his feet and hands. He also notes feeling weak which he attributes to laying in bed for the last 2 days. Denies CP, SOB, abdominal pain, nausea, vomiting, diarrhea, rashes, dizziness, headache or numbness or tingling Review of Systems Review of Systems: Per HPI. Physical Exam Physical Exam: General: Alert and oriented, no acute distress, HEENT: Normocephalic, moist oral mucosa, no lymphadenopathy Cardio: Regular rate and rhythm, no murmur, Resp: Lungs clear to auscultation b/l, no wheezes or rhonchi, GI: Soft and nontender, normoactive bowel sounds Skin: Warm, pink, dry, no rashes Extremities: Normal range of motion, 5/5 strength, No edema appreciated. Dorsalis pedis 1+ good bilaterally Results & Data Results & Data Vital Signs (Past 12 Hours) Vital Signs Temp Pulse Pulse Resp BP BP Pulse Ox 09/28/24 07:25 36.5 C 64 18 110/70 98 09/28/24 04:58 36.7 C 67 16 124/79 99 09/28/24 01:01 61 09/28/24 00:41 36.7 C 70 15 105/62 98 09/27/24 20:00 36.8 C 99 H 16 126/88 100 O2 Del Method 09/28/24 07:25 Room Air 09/28/24 04:58 Room Air 09/28/24 01:01 09/28/24 00:41 Room Air 09/27/24 20:00 Room Air Resident Activity Tracking Resident Involvement: Resident Care Provided Care Provided: Adult Hospital Medicine
[2024-09-28] MEDS: SODIUM CHLORIDE 0.9% 1,000 ML IV SCH (11:15)
[2024-09-28 11:49] VITALS: TEMP 97.9
[2024-09-28 14:31] LABS: Calcium 8.2 mg/dl (8.6-10.3); Creatinine Clr Calc Pharmacy 161.7 ml/min; Potassium 4.2 mmol/L (3.5-5.1)
[2024-09-28 14:37] LABS: Troponin I High Sensitivity 5.2 pg/ml (0-20)
[2024-09-28 15:55] VITALS: PULSE 81; O2SAT 100
[2024-09-28 16:19] VITALS: BP 126/88
--- NOTE | 2024-09-28 16:29 | Discharge Summary ---
Date of Service September 28, 2024 Admission HPI Per Admitting Provider Pt is a 23 yo male with no significant past medical history who presents to the hospital on 09/27 for fall down 10 stairs without injury on imaging but rhabdomyolysis noted. Pt states he was walking down a flight of stairs backwards and then slipped and fell down the remaining 10 stairs, landing on his R side and coming in today with R leg/thigh pain. No symptoms of chest pain, SOB, or lightheadedness prior to the fall. He did not hit his head, no LOC. He is participating in Ramadan and states that he just started working out for the first time this week on Sunday with his last gym session being yesterday. He states he has been taking protein powder "Mass Gain" also starting this week. Right now, he states he has no pain. His R leg pain is much improved. No chest pain or SOB right now. Principal Diagnosis Rhabdomyolysis Discharge Exam General: Alert and oriented, no acute distress, HEENT: Normocephalic, moist oral mucosa, no lymphadenopathy Cardio: Regular rate and rhythm, no murmur, Resp: Lungs clear to auscultation b/l, no wheezes or rhonchi, GI: Soft and nontender, normoactive bowel sounds Skin: Warm, pink, dry, no rashes Extremities: Normal range of motion, 5/5 strength, No edema appreciated. Dorsalis pedis 1+ good bilaterally Discharge Data Allergies Allergy/AdvReac Type Severity Reaction Status Date / Time No Known Allergies Allergy Verified 05/22/23 23:30 Consultations 09/26/24 23:35 ED Decision to Admit Stat Ordered Studies 09/26/24 20:46 CT abd pelvis IV con only Stat CT cervical spine wo con Stat CT chest diagnostic w con Stat CT head/brain wo con Stat 09/26/24 23:44 US soft tissue ext ltd Routine Hospital Course (1) Rhabdomyolysis: (2) Transaminitis: Plan Pt is a 23 yo male with no significant past medical history who presents to the hospital on 09/27 for fall down 10 stairs without injury on imaging but rhabdomyolysis noted. Has received 6L IVF, but continues with elevating CK noted on AM labs. #Rhabdomyolysis - post fall and just started to go to the gym this week during Ramadan (fasting) - CT/xrays scans on admission negative for fractures - CK level on admission 15,000, have been hovering around 17,800 since 09/27 - given 2 bolus IVF in ED, additional 6 L since admission - Continue NSS and increased rate to 250/hr - Kidney function is good with Cr, BUN and GFR WNL, electrolytes in balance - CK level and BMP ordered for 1400 #Intermittent tachycardia, ST changes - Noted ST elevations in V2 nad V3 and intermittent tachycardia on telemetry - Pt denies CP, SOB, dizziness, nausea - Ordered EKG and trop level at 1400 #Transaminitis - on admission, mild - Continues with elevated AST at 196, ALT bumped to 63 - Continue to monitor with CMP #Hypoglycemia - pt is had been fasting for Ramada - BSG normal since admission - Will continue to monitor VTE prophylaxis: low risk Code status: Full Diet: Regular Dispo PCU/tele Total Time Total Time Spent Total Time Spent (In Minutes): As per attending physician's attestation Discharge Plan Discharge Items Patient Disposition: Home - Self-Care Reason For Visit: FALL,RHABDMYOLYSIS Discharge Diagnosis: Rhabdomyolosis Activity: Per Instructions section Activity Comment: Avoid exercise for 2 weeks, then able to resume light exercise and progress Non-emergency contact: Primary Care Provider Call non-emergency contact if: your symptoms worsen Follow-up/Referrals: [place] [Primary Care Provider] - Diet: Regular Ambulatory Orders: Creatine Kinase (Routine) Timeframe: 5 Days Location: Determined by Patient Ordered By: Romelia Serrano Comprehensive Metabolic Panel (Routine) Timeframe: 5 Days Location: Determined by Patient Ordered By: Romelia Hurtado Attending Provider Instructions: You came to the emergency room after a fall down the stairs. While no acute injuries or fractures were found, lab work showed significant muscle breakdown leading to Rhabdomyolysis. this was likely caused by working out while fasting. You were given continuous IV fluids and monitored with cardiac telemetry and repeated blood work. Your creatine kinase levels have started to decline and your are ready to discharge to home. We are recommending that you continue to focus on hydration and drink 2-3L of water daily. You advise that you avoid alcohol and caffeinated drinks. We also recommend that you avoid weight lifting and exercise for the next 2 weeks. After 2 weeks you can slowly progress your workouts. You will need to have the following blood work drawn in 5-7 days: Creatine Kinase Comprehensive metabolic panel Please follow up with your primary care physician (PCP) after your blood work and with in 7-10 days of hospital discharge. If you do not have a PCP, you can establish care at [facility] in the building next to the hospital. The number to call for an appointment is . Thank you for choosing [facility] for your health care. Pending Studies at Discharge: No Stand-Alone Forms: My [facility], Smoking Cessation Medications and DC Order Discharge Orders: Discharge Order (Routine); Ordered 09/28/24 Ordered By: Romelia Daniel/Other Patient Handouts: Creatine Kinase (Blood), Rhabdomyolysis, ED Rhabdomyolysis Admission Data Admit Date/Time: 09/27/24 01:06 Attending Provider: Danny Penaloza Admit Provider: Uma Richards Primary Care Provider: [facility] Other Providers: Otf Ieyr Resident Activity Tracking Resident Involvement: Resident Care Provided Care Provided: Adult Hospital Medicine
--- NOTE | 2024-09-29 05:40 | Electrocardiogram Report ---
Test Reason : Blood Pressure : */* mmHG Vent. Rate : 77 BPM Atrial Rate : 77 BPM P-R Int : 144 ms QRS Dur : 84 ms QT Int : 364 ms P-R-T Axes : 64 67 53 degrees QTcB Int : 411 ms Normal sinus rhythm with sinus arrhythmia Early repolarization Abnormal ECG When compared with ECG of 26-Sep-2024 21:23, No significant change was found Confirmed by Missael Edwards ([id number]) on 09/29/2024 5:40:06 AM Referred By: REFERRED SELF Confirmed By: Missael Edwards
--- NOTE | 2024-09-29 05:40 | Electrocardiogram Report ---
Test Reason : Blood Pressure : */* mmHG Vent. Rate : 81 BPM Atrial Rate : 81 BPM P-R Int : 154 ms QRS Dur : 86 ms QT Int : 338 ms P-R-T Axes : 57 71 59 degrees QTcB Int : 392 ms Normal sinus rhythm with sinus arrhythmia ST elevation, consider early repolarization Borderline ECG When compared with ECG of 26-Jan-2024 02:29, No significant change was found Confirmed by Missael Edwards ([id number]) on 09/29/2024 5:39:44 AM Referred By: REFERRED SELF Confirmed By: Missael Edwards
== END 2024-09-28 17:32 | disposition home or self-care (01) | DRG 558 ==
LOC: ED 20:24 → SUATTDRO 09-27 01:06 → EDINP 09-27 01:06 → 4W 09-27 01:28